=== PATIENT | female | born 1970 | race American Indian/Alaskan Native ===

== ENCOUNTER 2017-02-02 09:48 | Emergency (ER) | payer MEDICARE, MEDICAID ==
[2017-02-02 09:48] VITALS: BMI 39.1
[2017-02-02 09:59] VITALS: TEMP 99.3
[2017-02-02] MEDS ORDERED: Sodium Chloride 0.9% 1,000 ML ONE (10:12)
[2017-02-02] MEDS ORDERED: Sodium Chloride 0.9% 1,000 ML IV SCH (10:15)
[2017-02-02 10:27] LABS: RBC URINE < 1 /hpf (0-3); URINE BACTERIA RARE (<OCC); URINE BILIRUBIN NEGATIVE (NEGATIVE); URINE BLOOD 2+ (NEGATIVE); URINE COLOR Straw (YELLOW); URINE GLUCOSE (UA) NORMAL (Normal); URINE KETONE NEGATIVE (NEGATIVE); URINE LEUKOCYTE ESTERASE NEG Leu/uL (Negative); URINE PROTEIN NEGATIVE (NEGATIVE); URINE UROBILINOGEN NORMAL mg/dL (0.2-1.0); WBC URINE 1 /hpf (0-5)
[2017-02-02 10:27] LABS: BASO # 0.1 K/uL (0.0-0.2); BASO % 1.5 % (0.0-2.0); EOS # 0.2 K/uL (0.0-0.7); EOS % 2.8 % (0.0-4.0); HEMATOCRIT 48.9 % (34.0-47.0); LYMPH # 2.3 K/uL (1.0-4.3); MEAN CELL VOLUME 81.4 fL (81.0-99.0); MEAN CORPUSCULAR HGB CONC 33.1 g/dL (33.0-37.0); MEAN PLATELET VOLUME 8.6 fL (7.2-11.7); MONO # 0.5 K/uL (0.0-0.8); MONO % 6.6 % (0.0-10.0); NRBC % 0.1 % (0.0-2.0); RED CELL DISTRIBUTION WIDTH 15.4 % (11.5-14.5)
[2017-02-02 10:31] LABS: CHLORIDE 96 mmol/L (98-107); POTASSIUM 4.2 mmol/L (3.6-5.2); SODIUM 137 mmol/L (132-148)
[2017-02-02 10:33] LABS: GFR AFRICAN-AMERICAN > 60
[2017-02-02 10:34] LABS: ALB/GLOB RATIO 1.2 (1.0-2.1); ALKALINE PHOSPHATASE 88 U/L (38-126); ALT/SGPT 14 U/L (9-52); AST/SGOT 15 U/L (14-36); BILIRUBIN,TOTAL 0.5 mg/dL (0.2-1.3); BLOOD UREA NITROGEN 9 mg/dL (7-17); CALCIUM 8.4 mg/dl (8.6-10.4); CARBON DIOXIDE 31 mmol/L (22-30); GLUCOSE,RANDOM 140 mg/dL (65-105); TOTAL PROTEIN 7.4 g/dL (6.3-8.3)
[2017-02-02 12:08] VITALS: BP 134/83; PULSE 77; RESP 16; O2SAT 95
--- NOTE | 2017-02-02 12:41 | CT ---
PROCEDURE: CT abdomen pelvis 02/02/2017 HISTORY: right flank pain COMPARISON: None. TECHNIQUE: Contiguous axial images of the abdomen and pelvis performed without oral or intravenous contrast material. Coronal and Sagittal reformats generated. Radiation dose: Total exam DLP = 1098.60 mGy-cm. This CT exam was performed using one or more of the following dose reduction techniques: Automated exposure control, adjustment of the mA and/or kV according to patient size, and/or use of iterative reconstruction technique. FINDINGS: LOWER THORAX: Mild passive - dependent type atelectasis. . There also appears to be some chronic atelectasis and or scarring changes in the left lung base and lingular region. No evidence of basilar pneumothorax. Small hiatal hernia. LIVER: Liver is mildly enlarged measuring nearly 20 cm in CC dimension. No obvious hepatic mass or collection seen on this noncontrast study. GALLBLADDER AND BILE DUCTS: Unremarkable. Status post cholecystectomy PANCREAS: Pancreas appears grossly unremarkable. SPLEEN: Unremarkable. No splenomegaly. ADRENALS: Unremarkable. KIDNEYS AND URETERS: The kidneys exhibit relatively symmetric size. No evidence of nephrolithiasis or hydronephrosis. Tiny metallic clip the presumably related to cholecystectomy surgery seen between the liver and upper pole left kidney. No evidence of ureteral dilatation. The the the BLADDER: Urinary bladder is incompletely distended which may in part account for thick-walled appearance. Possibility of cystitis not excluded. REPRODUCTIVE: There may be a few tiny calcifications in the just inferior to the cervix possibly within the vaginal vault. . The uterus otherwise appears unremarkable. APPENDIX: The appendix appears unremarkable best seen on axial image number [id number]. BOWEL: Evaluation of bowel is limited due to the lack of oral contrast. Stomach is incompletely distended which presumably accounts for thick-walled appearance. Possibility of gastritis not excluded. Visualized loops of small bowel exhibit normal contour and caliber. No evidence of acute mechanical small bowel obstruction. A moderate amount of stool seen throughout the cecum and ascending colon suggesting mild fecal retention/ there does appear to be a few scattered diverticula along the descending and sigmoid colon however no radiographic evidence of acute diverticulitis. . PERITONEUM: No fluid collection. No free air. Small -medium-sized fat containing umbilical hernia. . Small fat containing left inguinal hernia. LYMPH NODES: There are a few small nonspecific retroperitoneal lymph nodes. VASCULATURE: Unremarkable. No aortic aneurysm. BONES: Osseous structures appear grossly intact. Mild multilevel degenerative spondylosis of the lower thoracic and lumbar spine. OTHER FINDINGS: None. IMPRESSION: Status post cholecystectomy. Hepatomegaly. No evidence of nephrolithiasis or hydronephrosis. Small to medium sized fat containing umbilical hernia. Few scattered colonic diverticula however no radiographic evidence of acute diverticulitis. The See above discussion for additional findings.
--- NOTE | 2017-02-02 14:27 | C.PDOC ---
History Of Present Illness 46-year-old female, presents to the emergency department with complaints of back pain. Patient states she has been experiencing right sided flank pain "for a while". Patient notes that pain radiates to right side of abdomen. Denies nausea/vomiting, fevers, chest pain, shortness of breath, hematuria, dysuria, or any other associated symptoms. No other complaints at this time. Chief Complaint (Nursing): Abdominal Pain Past Medical History Reviewed: Historical Data, Nursing Documentation, Vital Signs Vital Signs: Last Vital Signs Temp 99.3 F 02/02/17 09:55 Pulse 77 02/02/17 12:08 Resp 16 02/02/17 12:08 BP 134/83 02/02/17 12:08 Pulse Ox 95 02/02/17 14:40 - Medical History PMH: Anxiety, Asthma, Bipolar Disorder, Bronchitis, COPD, Depression, Diabetes, Emphysema, HTN, Schizophrenia Comment Only: Seizures (Pt states she feels she has had a seizure) Surgical History: Cholecystectomy (SX IN ") Denies: Appendectomy - [facility] Procedures GROUP HOMICIDE SQUAD CAPTAIN FOR SUBSTANCE ABUSE TREATMENT, PSYCHOEDUCATION (10/20/15) NEBULIZER THERAPY (03/09/14) PSYCHIAT DRUG THERAP NEC (03/09/14) Family History: States: No Known Family Hx - Social History Hx Tobacco Use: Yes Hx Alcohol Use: No (Has not drank since 1998) Hx Substance Use: No - Immunization History Hx Tetanus Toxoid Vaccination: Yes Hx Influenza Vaccination: Yes Hx Pneumococcal Vaccination: No Review Of Systems Except As Marked, All Systems Reviewed And Found Negative. Constitutional: Negative for: Fever, Chills Cardiovascular: Negative for: Chest Pain Respiratory: Negative for: Cough, Shortness of Breath Gastrointestinal: Positive for: Abdominal Pain. Negative for: Nausea, Vomiting Musculoskeletal: Positive for: Back Pain Neurological: Negative for: Weakness, Numbness, Headache, Dizziness Physical Exam - Physical Exam Appears: Non-toxic, No Acute Distress Skin: Warm, Dry, No Rash Eye(s): bilateral: Normal Inspection, PERRL, EOMI Nose: Normal Oral Mucosa: Moist Lips: Normal Appearing Neck: Normal ROM Chest: Symmetrical Cardiovascular: Rhythm Regular, No Murmur Respiratory: Normal Breath Sounds, No Accessory Muscle Use Gastrointestinal/Abdominal: Soft, No Tenderness Back: No CVA Tenderness Extremity: Normal ROM Neurological/Psych: Oriented x3 ED Course And Treatment - Laboratory Results Result Diagrams: 02/02/17 10:20 02/02/17 10:20 O2 Sat by Pulse Oximetry: 95 Disposition - Disposition Referrals: Daly Aleman, [Non-Staff] - Disposition: HOME/ ROUTINE Disposition Time: 12:30 Condition: IMPROVED Additional Instructions: Thank you for letting us take care of you today. Your provider was Dr. Roach. You were treated for skeletal pain. The emergency medical care you received today was directed at your acute symptoms. If you were prescribed any medication, please fill it and take as directed. It may take several days for your symptoms to resolve. Return to the Emergency Department if your symptoms worsen, do not improve, or if you have any other problems. Please contact your doctor or call one of the physicians/clinics you have been referred to that are listed on the Patient Visit Information form that is included in your discharge packet. Bring any paperwork you were given at discharge with you along with any medications you are taking to your follow up visit. Our treatment cannot replace ongoing medical care by a primary care provider (PCP) outside of the emergency department. Thank you for allowing the [facility] team to be part of your care today. Follow up with your doctor in 3-4 days for re-evaluation. Prescriptions: Ibuprofen [Motrin] 600 mg PO Q6 PRN #20 tab PRN Reason: Pain, Moderate (4-7) Instructions: Musculoskeletal Pain (ED) - Clinical Impression Clinical Impression: Musculoskeletal pain - Scribe Statement The provider has reviewed the documentation as recorded by the Scribe (Ed Thompson) All medical record entries made by the Scribe were at my direction and personally dictated by me. I have reviewed the chart and agree that the record accurately reflects my personal performance of the history, physical exam, medical decision making, and the department course for this patient. I have also personally directed, reviewed, and agree with the discharge instructions and disposition.
== END 2017-02-02 13:18 | disposition home or self-care (01) ==
LOC: C.ER 09:48
DX: M79.1 Myalgia (principal)
CPT/HCPCS: 74176; 80053; 81001; 83690; 84703; 85025; 96374; 99285; J1885; J7040

== ENCOUNTER 2017-03-20 16:47 | Emergency (ER) | payer MEDICARE, MEDICAID ==
[2017-03-20 16:47] VITALS: BMI 39.1
--- NOTE | 2017-03-20 18:19 | C.PDOC ---
History Of Present Illness 46 y/o female pmhx including HTN, diabetes, emphysema sent to ED by PMD Luis Antonio for evaluation of infected cat scratch to abdomen sustained 1 week ago. Pt denies fever, chills, nausea, vomiting, SOB or any other complaints. Time Seen by Provider: 03/20/17 18:03 Chief Complaint (Nursing): Wound Check History Per: Patient History/Exam Limitations: no limitations Onset/Duration Of Symptoms: Days Ago, Laceration Current Symptoms Are (Timing): Worse Severity: Moderate Recent travel outside of the [place]: No Past Medical History Reviewed: Historical Data, Nursing Documentation, Vital Signs Vital Signs: Last Vital Signs Temp 98.9 F 03/20/17 17:05 Pulse 98 H 03/20/17 17:05 Resp 20 03/20/17 17:05 BP 159/96 H 03/20/17 17:05 Pulse Ox 94 L 03/20/17 18:22 - Medical History PMH: Anxiety, Asthma, Bipolar Disorder, Bronchitis, COPD, Depression, Diabetes, Emphysema, HTN, Schizophrenia Comment Only: Seizures (Pt states she feels she has had a seizure) Surgical History: Cholecystectomy (SX IN ") Denies: Appendectomy - [facility] Procedures GROUP DOCUMENTATION SPECIALIST FOR SUBSTANCE ABUSE TREATMENT, PSYCHOEDUCATION (10/20/15) NEBULIZER THERAPY (03/09/14) PSYCHIAT DRUG THERAP NEC (03/09/14) Family History: States: Unknown Family Hx - Social History Hx Tobacco Use: Yes Hx Alcohol Use: No (Has not drank since 1998) Hx Substance Use: No - Immunization History Hx Tetanus Toxoid Vaccination: Yes Hx Influenza Vaccination: Yes Hx Pneumococcal Vaccination: No Review Of Systems Except As Marked, All Systems Reviewed And Found Negative. Constitutional: Negative for: Fever, Chills Gastrointestinal: Negative for: Nausea, Vomiting, Abdominal Pain Skin: Positive for: Other (infected cat scratch to abdomen) Physical Exam - Physical Exam Appears: Non-toxic, No Acute Distress Skin: Warm, Dry, No Rash Head: Atraumatic, Normacephalic Chest: Symmetrical Cardiovascular: Rhythm Regular Respiratory: Normal Breath Sounds, No Rales, No Rhonchi, No Wheezing Gastrointestinal/Abdominal: Soft, Other (healed 12 cm scar with small scratch and surrounding ecchymosis with area ecchymosis around umbilicus, small central clearing with 5 cm area induration and tenderness) Extremity: No Pedal Edema Extremity: Bilateral: Atraumatic Neurological/Psych: Oriented x3, Normal Speech, Normal Cognition ED Course And Treatment O2 Sat by Pulse Oximetry: 94 (room air) Progress Note: Plan: CT abdomen, labs Disposition - Disposition Disposition Time: 18:41 Condition: GUARDED - POA Present On Arrival: None - Clinical Impression Clinical Impression: Animal bite wound - Scribe Statement The provider has reviewed the documentation as recorded by the Mary Lou Pryor Provider Attestation: All medical record entries made by the Mary Lou were at my direction and personally dictated by me. I have reviewed the chart and agree that the record accurately reflects my personal performance of the history, physical exam, medical decision making, and the department course for this patient. I have also personally directed, reviewed, and agree with the discharge instructions and disposition. Physician Patient Turnover Patient Signed Over To: Yang Faust Handoff Comments: Patient with possible abdominal wall abscess, needs labs, abdominal CT, Abx
[2017-03-20 18:35] LABS: BASO # 0.1 K/uL (0.0-0.2); BASO % 1.2 % (0.0-2.0); EOS # 0.1 K/uL (0.0-0.7); EOS % 1.6 % (0.0-4.0); LYMPH # 2.5 K/uL (1.0-4.3); LYMPH % 34.3 % (20.0-40.0); MEAN CELL VOLUME 81.3 fL (81.0-99.0); MEAN CORPUSCULAR HEMOGLOBIN 26.7 pg (27.0-31.0); MEAN CORPUSCULAR HGB CONC 32.9 g/dL (33.0-37.0); MEAN PLATELET VOLUME 8.5 fL (7.2-11.7); MONO # 0.4 K/uL (0.0-0.8); MONO % 5.8 % (0.0-10.0); NEUT # 4.2 K/uL (1.8-7.0); NEUT % 57.1 % (50.0-75.0); NRBC % 0.1 % (0.0-2.0); RBC 5.62 Mil/uL (3.80-5.20); RED CELL DISTRIBUTION WIDTH 14.9 % (11.5-14.5); WHITE BLOOD COUNT 7.3 K/uL (4.8-10.8)
[2017-03-20] MEDS ORDERED: Clindamycin 300 MG in Sodium Chloride 0.9% 50 ML IVPB STA (18:43)
[2017-03-20 18:45] LABS: GFR AFRICAN-AMERICAN > 60; GFR NON-AFRICAN AMERICAN > 60
[2017-03-20 18:46] LABS: BLOOD UREA NITROGEN 11 mg/dL (7-17); CALCIUM 8.8 mg/dl (8.6-10.4)
[2017-03-20] MEDS ORDERED: Dexamethasone 4 mg/1 ml IVP STA (19:04)
[2017-03-20] MEDS ORDERED: DiphenhydrAMINE 50 mg/ml Inj IVP STA (19:04)
[2017-03-20] MEDS ORDERED: Dexamethasone 4 mg/1 ml ONE (19:07)
[2017-03-20] MEDS ORDERED: DiphenhydrAMINE 50 mg/ml Inj ONE (19:07)
[2017-03-20 19:24] VITALS: RESP 18
[2017-03-20] MEDS ORDERED: Clindamycin 600mg/50ml D5W 600 MG/50 ML VIAL IVPB ONE (19:42)
[2017-03-20] MEDS ORDERED: Iodixanol 320 MG/ML 100 ML BOTTLE IV ONE (22:01)
[2017-03-20 22:29] VITALS: BP 153/95; PULSE 90; TEMP 98.5; O2SAT 95
--- NOTE | 2017-03-20 22:46 | CT ---
EXAM: CT Abdomen and Pelvis With Intravenous Contrast CLINICAL HISTORY: 46 years old, female; Signs and symptoms; Mass, lump, or swelling; Periumbilical; Additional info: Infection, rule out abscess TECHNIQUE: Axial computed tomography images of the abdomen and pelvis with intravenous contrast. This CT exam was performed using one or more of the following dose reduction techniques: automated exposure control, adjustment of the mA and/or kV according to patient size, and/or use of iterative reconstruction technique. Coronal and sagittal reformatted images were created and reviewed. CONTRAST: 100 mL of [id number] administered intravenously. COMPARISON: No relevant prior studies available. FINDINGS: Atelectasis. Enlarged liver. The spleen, pancreas and right adrenal gland demonstrate no acute abnormalities. Evidence of 1.4 cm left adrenal nodule. Further evaluation can be performed with imaging with dedicated protocol. Status post cholecystectomy with biliary ductal prominence. The kidneys are symmetric with no evidence of hydronephrosis. The aorta is unremarkable. Large [place] fat containing umbilical hernia. Small fat containing hernia left groin. Evaluation of bowel limited without enteric contrast. The small and large bowel as visualized demonstrate no evidence of obstruction or clear focus of inflammation. Normal caliber appendix. Colonic diverticula. Unremarkable evaluation of the pelvic viscera as visualized. No ascites. No free air. Degenerative changes. IMPRESSION: Large [place] fat containing umbilical hernia. Enlarged liver. Evidence of 1.4 cm left adrenal nodule. Further evaluation can be performed with imaging with dedicated protocol. Small fat containing hernia left groin. Colonic diverticula.
== END 2017-03-20 23:08 | disposition home or self-care (01) ==
LOC: C.ER 16:47
DX: S30.1XXA Contusion of abdominal wall, initial encounter (principal); W55.03XA Scratched by cat, initial encounter
CPT/HCPCS: 74177; 80048; 85025; 96365; 96375; 99283; J1100; J1200; Q9967

== ENCOUNTER 2017-07-19 15:29 | Emergency (ER) | payer MEDICARE, MEDICAID ==
[2017-07-19 15:35] VITALS: BMI 40.7
[2017-07-19 15:44] VITALS: TEMP 98.5
[2017-07-19 16:33] LABS: RBC URINE < 1 /hpf (0-3); URINE BILIRUBIN NEGATIVE (NEGATIVE); URINE BLOOD NEGATIVE (NEGATIVE); URINE COLOR Straw (YELLOW); URINE GLUCOSE (UA) 3+ mg/dL (Normal); URINE KETONE NEGATIVE (NEGATIVE); URINE LEUKOCYTE ESTERASE TRACE Leu/uL (Negative); URINE PROTEIN NEGATIVE (NEGATIVE); URINE UROBILINOGEN NORMAL mg/dL (0.2-1.0); WBC URINE < 1 /hpf (0-5)
--- NOTE | 2017-07-19 16:44 | C.PDOC ---
History Of Present Illness 47 y/o female, with PMHx of diabetes, presents to ED c/o itchy vaginal discharge for the past several weeks. Notes trying OTC anti-fungal vaginal cream twice without improvement. Denies dysuria, hematuria, fever, or abdominal pain. Time Seen by Provider: 07/19/17 15:44 Chief Complaint (Nursing): Female Genitourinary History Per: Patient History/Exam Limitations: no limitations Onset/Duration Of Symptoms: Days Current Symptoms Are (Timing): Still Present Alleviating Factors: None Additional History Per: Patient Past Medical History Reviewed: Historical Data, Nursing Documentation, Vital Signs Vital Signs: Last Vital Signs Temp 98.5 F 07/19/17 15:35 Pulse 90 07/19/17 16:52 Resp 18 07/19/17 16:52 BP 134/85 07/19/17 16:52 Pulse Ox 96 07/19/17 18:50 - Medical History PMH: Anxiety, Asthma, Bipolar Disorder, Bronchitis, COPD, Depression, Diabetes, Emphysema, HTN, Schizophrenia Denies: Hepatitis, HIV, Chronic Kidney Disease, Sexually Transmitted Disease Comment Only: Seizures (Pt states she feels she has had a seizure) Surgical History: Cholecystectomy (SX IN ") Denies: Appendectomy - [facility] Procedures GROUP TECHNICAL SOLUTIONS ENGINEER FOR SUBSTANCE ABUSE TREATMENT, PSYCHOEDUCATION (10/20/15) GROUP PSYCHOTHERAPY (06/28/17) INDIVIDUAL PSYCHOTHERAPY, SUPPORTIVE (06/28/17) MEDICATION MANAGEMENT (06/28/17) NEBULIZER THERAPY (03/09/14) PSYCHIAT DRUG THERAP NEC (03/09/14) Family History: States: Unknown Family Hx - Social History Hx Tobacco Use: Yes Hx Alcohol Use: No (Has not drank since 1998) Hx Substance Use: Yes - Immunization History Hx Tetanus Toxoid Vaccination: No Hx Influenza Vaccination: No Hx Pneumococcal Vaccination: No Review Of Systems Except As Marked, All Systems Reviewed And Found Negative. Constitutional: Negative for: Fever, Chills Gastrointestinal: Negative for: Nausea, Vomiting, Abdominal Pain Genitourinary: Positive for: Vaginal Discharge (itchy). Negative for: Dysuria, Frequency, Hematuria, Vaginal Bleeding, Pelvic Pain Musculoskeletal: Negative for: Back Pain Physical Exam - Physical Exam Appears: Non-toxic, No Acute Distress, Other (obese) Skin: Normal Color, Warm, Dry Head: Atraumatic, Normacephalic Eye(s): bilateral: Normal Inspection Oral Mucosa: Moist Cardiovascular: Rhythm Regular, No Murmur Respiratory: Normal Breath Sounds, No Rales, No Rhonchi, No Wheezing Gastrointestinal/Abdominal: Soft, No Tenderness Pelvic: No Vaginal Bleeding, Vaginal Discharge (thich cottage cheese), No Cervical Motion Tenderness, No Adnexal Tenderness, Other (mild irritation of labia) Extremity: Normal ROM Neurological/Psych: Oriented x3, Normal Speech ED Course And Treatment O2 Sat by Pulse Oximetry: 96 Pulse Ox Interpretation: Normal Progress Note: UA, UPreg ordered and reviewed. Pt was given Diflucan. On reassessment, patient is resting comfortably, and is in no acute distress. Patient was instructed to follow up with physician/clinic in 1-2 days for further evaluation. Disposition Counseled Patient/Family Regarding: Studies Performed, Diagnosis, Need For Followup - Disposition Referrals: Prosper Salmon [Staff Provider] - Disposition: HOME/ ROUTINE Disposition Time: 16:45 Condition: STABLE Additional Instructions: FOLLOW UP WITH YOUR DOCTOR IN 1-2 DAYS USE MEDICATION IN 72 HOURS IF SYMPTOMS PERSIST RETURN TO ER IF SYMPTOMS WORSEN Prescriptions: Fluconazole [Diflucan] 150 mg PO DAILY #1 tab Instructions: Vulvovaginal Candidiasis (ED) Forms: [employer] (Welsh) Print Language: NORWEGIAN - POA Present On Arrival: None - Clinical Impression Clinical Impression: Vaginal candidiasis - Scribe Statement The provider has reviewed the documentation as recorded by the Yamilethibe Yudi Rodriguez All medical record entries made by the Yamilethibe were at my direction and personally dictated by me. I have reviewed the chart and agree that the record accurately reflects my personal performance of the history, physical exam, medical decision making, and the department course for this patient. I have also personally directed, reviewed, and agree with the discharge instructions and disposition.
[2017-07-19 16:53] VITALS: BP 134/85; PULSE 90; RESP 18
[2017-07-19 18:15] VITALS: O2SAT 96
== END 2017-07-19 16:53 | disposition home or self-care (01) ==
LOC: C.ER 15:29
DX: B37.3 Candidiasis of vulva and vagina (principal); E11.9 Type 2 diabetes mellitus without complications; I10 Essential (primary) hypertension; J44.9 Chronic obstructive pulmonary disease, unspecified; Z87.891 Personal history of nicotine dependence

== ENCOUNTER 2018-03-04 09:48 | Emergency (ER) | payer MEDICARE, MEDICAID ==
[2018-03-04 09:49] VITALS: BMI 40.7
[2018-03-04 10:00] VITALS: BP 127/86; PULSE 95; RESP 18; TEMP 98.8; O2SAT 99
--- NOTE | 2018-03-04 10:09 | C.PDOC ---
History Of Present Illness 47-year-old female, presents to the emergency department with complaints of pain to the throat, greater on the right, which is associated with "stuffy ears " and a generalized headache. Pt notes she had a fever three days ago which has now resolved. Time Seen by Provider: 03/04/18 09:57 Chief Complaint (Nursing): ENT Problem History Per: Patient History/Exam Limitations: None Current Symptoms Are (Timing): Still Present Severity: Moderate Past Medical History Reviewed: Historical Data, Nursing Documentation, Vital Signs Vital Signs: Last Vital Signs Temp 98.8 F 03/04/18 09:51 Pulse 95 H 03/04/18 09:51 Resp 18 03/04/18 09:51 BP 127/86 03/04/18 09:51 Pulse Ox 99 03/04/18 10:13 - Medical History PMH: Anxiety, Asthma, Bipolar Disorder, Bronchitis, COPD, Depression, Diabetes, Emphysema, HTN, Schizophrenia Comment Only: Seizures (Pt states she feels she has had a seizure) Surgical History: Cholecystectomy (SX IN ") - [facility] Procedures GROUP UTILITIES MANAGER FOR SUBSTANCE ABUSE TREATMENT, PSYCHOEDUCATION (10/20/15) GROUP PSYCHOTHERAPY (06/28/17) INDIVIDUAL PSYCHOTHERAPY, SUPPORTIVE (06/28/17) MEDICATION MANAGEMENT (06/28/17) NEBULIZER THERAPY (03/09/14) PSYCHIAT DRUG THERAP NEC (03/09/14) Family History: States: No Known Family Hx - Social History Hx Tobacco Use: Yes Hx Alcohol Use: No (quit in 1998) Hx Substance Use: Yes - Immunization History Hx Tetanus Toxoid Vaccination: No Hx Influenza Vaccination: No Hx Pneumococcal Vaccination: No Review Of Systems Constitutional: Positive for: Fever. Negative for: Chills, Malaise ENT: Positive for: Ear Pain, Throat Pain. Negative for: Ear Discharge Respiratory: Negative for: Cough Gastrointestinal: Negative for: Nausea, Vomiting Neurological: Negative for: Weakness, Headache, Dizziness Physical Exam - Physical Exam Appears: Non-toxic, No Acute Distress Skin: Normal Color, Warm, Dry, No Rash Head: Atraumatic, Normacephalic Eye(s): bilateral: Normal Inspection, PERRL, EOMI Ear(s): Bilateral: Normal Nose: Normal Oral Mucosa: Moist Lips: Normal Appearing Throat: Exudate (R tonsil is enlarged.) Neck: Normal ROM Chest: Symmetrical Cardiovascular: Rhythm Regular, No Murmur Respiratory: Normal Breath Sounds, No Accessory Muscle Use Extremity: Normal ROM, No Deformity Neurological/Psych: Oriented x3, Normal Speech ED Course And Treatment O2 Sat by Pulse Oximetry: 99 (RA) Pulse Ox Interpretation: Normal Disposition Counseled Patient/Family Regarding: Diagnosis, Need For Followup, Rx Given - Disposition Referrals: Prosper Greenfield MD [Staff Provider] - Disposition: HOME/ ROUTINE Disposition Time: 10:06 Condition: STABLE Prescriptions: Azithromycin 1 tab PO DAILY #6 tab Ibuprofen [Motrin] 600 mg PO TID #15 tab Forms: [employer] (Moldovan) - POA Present On Arrival: None - Clinical Impression Clinical Impression: Acute tonsillitis, Viral syndrome - Scribe Statement The provider has reviewed the documentation as recorded by the Scribe (Ed Thompson) All medical record entries made by the Scribe were at my direction and personally dictated by me. I have reviewed the chart and agree that the record accurately reflects my personal performance of the history, physical exam, medical decision making, and the department course for this patient. I have also personally directed, reviewed, and agree with the discharge instructions and disposition.
== END 2018-03-04 10:19 | disposition home or self-care (01) ==
LOC: C.ER 09:48
DX: B34.9 Viral infection, unspecified (principal); J03.90 Acute tonsillitis, unspecified; E11.9 Type 2 diabetes mellitus without complications; F20.9 Schizophrenia, unspecified; I10 Essential (primary) hypertension; Z72.0 Tobacco use

== ENCOUNTER 2018-03-06 08:08 | Emergency (ER) | payer MEDICARE, MEDICAID ==
[2018-03-06 08:16] VITALS: RESP 18; O2SAT 100; BMI 36.4
--- NOTE | 2018-03-06 08:28 | C.PDOC ---
History Of Present Illness 47 y/o female presents to ED with c/o persistent throat pain and bumps to vagina since yesterday after shaving. Patient was seen on 03/04/18 at ED for throat pain and cough, discharged on antibiotics for throat infection. Today patient reports throat is still burning and has taken Motrin with no relief. Patient denies fever, chills, dysuria, hematuria or vaginal bleeding. Time Seen by Provider: 03/06/18 08:17 Chief Complaint (Nursing): ENT Problem History Per: Patient History/Exam Limitations: no limitations Onset/Duration Of Symptoms: Days Current Symptoms Are (Timing): Still Present Past Medical History Reviewed: Historical Data, Nursing Documentation, Vital Signs Vital Signs: Last Vital Signs Temp 99.0 F 03/06/18 09:30 Pulse 92 H 03/06/18 09:30 Resp 18 03/06/18 09:30 BP 128/80 03/06/18 09:30 Pulse Ox 100 03/06/18 09:30 - Medical History PMH: Anxiety, Asthma, Bipolar Disorder, Bronchitis, COPD, Depression, Diabetes, Emphysema, HTN, Schizophrenia Comment Only: Seizures (Pt states she feels she has had a seizure) Surgical History: Cholecystectomy (SX IN ") - [employer] Procedures [employer] FOR SUBSTANCE ABUSE TREATMENT, PSYCHOEDUCATION (10/20/15) GROUP PSYCHOTHERAPY (06/28/17) INDIVIDUAL PSYCHOTHERAPY, SUPPORTIVE (06/28/17) MEDICATION MANAGEMENT (06/28/17) NEBULIZER THERAPY (03/09/14) PSYCHIAT DRUG THERAP NEC (03/09/14) Family History: States: No Known Family Hx - Social History Hx Tobacco Use: Yes Hx Alcohol Use: No (quit in 1998) Hx Substance Use: Yes - Immunization History Hx Tetanus Toxoid Vaccination: No Hx Influenza Vaccination: No Hx Pneumococcal Vaccination: No Review Of Systems Constitutional: Negative for: Fever, Chills ENT: Positive for: Throat Pain Respiratory: Positive for: Cough. Negative for: Shortness of Breath Gastrointestinal: Negative for: Nausea, Vomiting Genitourinary: Negative for: Dysuria, Hematuria, Vaginal Bleeding Skin: Positive for: Other (bumps to vagina). Negative for: Rash Physical Exam - Physical Exam Appears: Non-toxic, No Acute Distress Skin: Warm, Dry, No Rash Head: Atraumatic, Normacephalic Eye(s): bilateral: Normal Inspection Oral Mucosa: Moist Throat: Erythema, Exudate (right tonsil), Other (uvula midline) Neck: Normal ROM, Supple Cardiovascular: Rhythm Regular Respiratory: Normal Breath Sounds, No Rales, No Rhonchi, No Wheezing Gastrointestinal/Abdominal: Soft, No Tenderness, No Guarding, No Rebound Pelvic: No Vaginal Bleeding, No Vaginal Discharge, Other (papules and pustules on erythematous base to pubic region, no discharge, mass or abscess) Extremity: Normal ROM, Capillary Refill (<2 seconds) Neurological/Psych: Oriented x3, Normal Speech Gait: Steady ED Course And Treatment O2 Sat by Pulse Oximetry: 100 (RA) Pulse Ox Interpretation: Normal Medical Decision Making Medical Decision Making: Impression: Folliculitis, pharyngitis Plan: * UA Progress: UA shows leukocytes and bacteria, likely dirty catch but will treat as patient complains of irritation and is . Patient aware of status and states is unwanted and will follow up with [facility] outpatient. Instruct patient to finish antibiotic course, will prescribe cream to apply to pubic area. Disposition Counseled Patient/Family Regarding: Diagnosis, Need For Followup, Rx Given - [facility] Disposition: HOME/ ROUTINE Disposition Time: 09:18 Condition: GOOD Additional Instructions: Prescription sent to your pharmacy [facility] Apply cream to affected area daily take antibiotic as prescribed Follow up with your cable ferry operator or women's health clinic Prescriptions: Mupirocin 2% Ointment [Bactroban Ointment] 15 cre TOP DAILY 7 Days #1 tube Nitrofurantoin Macrocrystals [Macrobid] 1 cap PO BID #14 cap Instructions: Sore Throat, Adult (DC), Urinary Tract Infection, Adult (DC), Folliculitis (DC) Forms: [employer] (Uzbek) - POA Present On Arrival: None - Clinical Impression Clinical Impression: Folliculitis, Pharyngitis, Acute urinary tract infection - PA / CORK WIRER / Resident Statement MD/DO has reviewed & agrees with the documentation as recorded. - Scribe Statement The provider has reviewed the documentation as recorded by the Mary Lou Vásquez All medical record entries made by the Mary Lou were at my direction and personally dictated by me. I have reviewed the chart and agree that the record accurately reflects my personal performance of the history, physical exam, medical decision making, and the department course for this patient. I have also personally directed, reviewed, and agree with the discharge instructions and disposition.
[2018-03-06 09:03] LABS: HCG,QUALITATIVE URINE POSITIVE (NEGATIVE)
[2018-03-06 09:06] LABS: SQUAMOUS EPITHIAL 18 /hpf (0-5); URINE BACTERIA OCC (<OCC); URINE BILIRUBIN NEGATIVE (NEGATIVE); URINE BLOOD NEGATIVE (NEGATIVE); URINE CLARITY Hazy (Clear); URINE COLOR Yellow (YELLOW); URINE GLUCOSE (UA) NORMAL (Normal); URINE LEUKOCYTE ESTERASE 2+ Leu/uL (Negative); URINE PROTEIN NEGATIVE (NEGATIVE)
[2018-03-06 09:56] VITALS: BP 128/80; PULSE 92; TEMP 99
== END 2018-03-06 09:56 | disposition home or self-care (01) ==
LOC: C.ER 08:08
DX: J02.9 Acute pharyngitis, unspecified (principal); L73.9 Follicular disorder, unspecified; N39.0 Urinary tract infection, site not specified

== ENCOUNTER 2018-03-07 12:58 | Emergency (ER) | payer MEDICARE, MEDICAID ==
[2018-03-07 12:59] VITALS: BMI 40.7
[2018-03-07 13:34] VITALS: BP 114/77; RESP 18; TEMP 98.7; O2SAT 100
--- NOTE | 2018-03-07 15:04 | C.PDOC ---
History Of Present Illness 47 year old female presents to the ER after being scratched to the left arm by a cat a month ago. She states since then she has been having a sore throat and subjective fever which resolved, but states she thinks she has a "infections in the throat that needs to be swabbed". Denies vomiting, diarrhea, or drooling. Time Seen by Provider: 03/07/18 13:39 Chief Complaint (Nursing): Medical Clearance History Per: Patient History/Exam Limitations: no limitations Onset/Duration Of Symptoms: Days Current Symptoms Are (Timing): Still Present Recent travel outside of the [place]: No Past Medical History Reviewed: Historical Data, Nursing Documentation, Vital Signs Vital Signs: Last Vital Signs Temp 98.7 F 03/07/18 13:32 Pulse 76 03/07/18 15:25 Resp 18 03/07/18 15:25 BP 114/77 03/07/18 13:32 Pulse Ox 100 03/07/18 18:51 - Medical History PMH: Anxiety, Asthma, Bipolar Disorder, Bronchitis, COPD, Depression, Diabetes, Emphysema, HTN, Schizophrenia Comment Only: Seizures (Pt states she feels she has had a seizure) Surgical History: Cholecystectomy (SX IN ") - [employer] 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, PSYCHOEDUCATION (10/20/15) GROUP PSYCHOTHERAPY (06/28/17) INDIVIDUAL PSYCHOTHERAPY, SUPPORTIVE (06/28/17) MEDICATION MANAGEMENT (06/28/17) NEBULIZER THERAPY (03/09/14) PSYCHIAT DRUG THERAP NEC (03/09/14) Family History: States: Unknown Family Hx - Social History Hx Tobacco Use: Yes Hx Alcohol Use: No (quit in 1998) Hx Substance Use: Yes - Immunization History Hx Tetanus Toxoid Vaccination: No Hx Influenza Vaccination: No Hx Pneumococcal Vaccination: No Review Of Systems Constitutional: Positive for: Fever (Subjective) ENT: Positive for: Throat Pain Gastrointestinal: Negative for: Vomiting, Diarrhea Skin: Positive for: Other (Scratch to arm) Physical Exam - Physical Exam Appears: Non-toxic Skin: Warm, Dry Head: Atraumatic, Normacephalic Eye(s): bilateral: Normal Inspection Ear(s): Bilateral: Normal Nose: Normal Oral Mucosa: Moist Throat: Erythema (Minimal), No Exudate Neck: Normal, Supple Chest: Symmetrical, No Tenderness Cardiovascular: Rhythm Regular Respiratory: Normal Breath Sounds, No Rales, No Rhonchi, No Wheezing Gastrointestinal/Abdominal: Soft, No Tenderness Extremity: Normal ROM (x4), Capillary Refill (<2 seconds), Other (Healed abrasion to left shoulder) Neurological/Psych: Oriented x3, Normal Speech ED Course And Treatment O2 Sat by Pulse Oximetry: 100 (Room air) Pulse Ox Interpretation: Normal Medical Decision Making Medical Decision Making: Tetanus is up to date. Old records reviewed, patient was seen twice in the past 2 days for sore throat and is being treated with zithromax. Patient reports that she has been taking the antibiotics but still feels like it could be "something else" throat culture sent. Otherwise physical exam is normal and scratch has healed. Disposition - Disposition Referrals: [facility] [Outside] Disposition: HOME/ ROUTINE Disposition Time: 15:02 Condition: GOOD Additional Instructions: Follow up with the medical doctor within 1-2 days without fail. Return if worsened. Prescriptions: predniSONE [Prednisone] 20 mg PO BID #10 tab Instructions: Sore Throat in Adults Forms: [employer] ([place]) - Clinical Impression Clinical Impression: Viral syndrome, Sore throat - PA / COMMUNITY MIDWIFE / Resident Statement MD/DO has reviewed & agrees with the documentation as recorded. - Scribe Statement The provider has reviewed the documentation as recorded by the Scribghanshyam Harvey All medical record entries made by the Yamilethibghanshyam were at my direction and personally dictated by me. I have reviewed the chart and agree that the record accurately reflects my personal performance of the history, physical exam, medical decision making, and the department course for this patient. I have also personally directed, reviewed, and agree with the discharge instructions and disposition.
[2018-03-07 15:26] VITALS: PULSE 76
== END 2018-03-07 15:25 | disposition home or self-care (01) ==
LOC: C.ER 12:58
DX: J02.9 Acute pharyngitis, unspecified (principal); B34.9 Viral infection, unspecified; F17.210 Nicotine dependence, cigarettes, uncomplicated